=== PATIENT | male | born 1990 | race Caucasian/White ===

== ENCOUNTER 2021-05-16 13:52 | Emergency (ER) | payer OTHER ==
[2021-05-16 14:03] VITALS: BP 130/82; PULSE 97; O2SAT 97
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
[2021-05-16 15:29] LABS: Amphetamine,Urine NEGATIVE (NEGATIVE); Barbiturate,Urine NEGATIVE (NEGATIVE); Benzodiazepine,Urine NEGATIVE (NEGATIVE); Cocaine,Urine NEGATIVE (NEGATIVE); Methadone,Urine NEGATIVE (NEGATIVE); Opiate,Urine NEGATIVE (NEGATIVE); PCP,Urine NEGATIVE (NEGATIVE); THC,Urine NEGATIVE (NEGATIVE)
== END 2021-05-16 15:03 | disposition home or self-care (01) ==
LOC: ED 13:52
DX: F65.89 Other paraphilias (principal); Z04.1 Encounter for examination and observation following transport accident; V89.2XXA Person injured in unspecified motor-vehicle accident, traffic, initial encounter; Y93.89 Activity, other specified; Y92.89 Other specified places as the place of occurrence of the external cause; Y99.0 Civilian activity done for income or pay
CPT/HCPCS: 36415; 80307; 99285; G0480